=== PATIENT | female | born 1995 | race American Indian/Alaskan Native ===

== ENCOUNTER 2018-01-28 15:20 | Emergency (ER) | payer SELFPAY ==
[2018-01-28 16:21] LABS: HCG Qualitative,Urine Negative (Negative)
[2018-01-28 16:24] VITALS: BP 140/76
[2018-01-28 17:04] LABS: Bilirubin,Urine Negative (Negative); Blood,Urine Large (Negative); Color,Urine Yellow (Yellow)
[2018-01-28 17:05] LABS: Bacteria,Urine 2+ /HPF (Negative); Mucus,Urine 3+ /HPF; RBC,Urine > 182.0 /HPF (0.0-6.0); Urobilinogen,Urine < 2.0 mg/dL (<2.0); WBC,Urine > 182.0 /HPF (0.0-6.0)
--- NOTE | 2018-01-28 17:26 | Emergency Department Report ---
ED Abdominal Pain HPI - General Chief Complaint: Abdominal Pain Stated Complaint: LOWER ADB PAIN/FEVER Time Seen by Provider: 01/28/18 17:06 Source: patient Mode of arrival: Ambulatory Limitations: No Limitations - History of Present Illness Initial Comments: He is a 22-year-old black female presenting with suprapubic discomfort and dysuria for the past 2 days. Patient denies any vaginal discharge or abnormal vaginal bleeding. Patient does have some mild nausea and vomiting as well is able to keep most fluids down. Patient states the pain is a 6 out of 10 in severity. - Related Data Previous Rx's Medication Instructions Recorded Last Taken Type Ciprofloxacin HCl [Cipro] 500 mg PO BID #14 tablet 01/28/18 Unknown Rx HYDROcodone/APAP 5-325 [[place] 1 each PO Q4HR PRN #12 tablet 01/28/18 Unknown Rx 5/325] Metoclopramide HCl [Reglan TAB] 5 mg PO TID PRN #15 tablet 01/28/18 Unknown Rx Phenazopyridine [Pyridium] 100 mg PO TID 2 Days tab 01/28/18 Unknown Rx Allergies Allergy/AdvReac Type Severity Reaction Status Date / Time No Known Allergies Allergy Verified 01/28/18 15:30 ED Review of Systems ROS: Stated complaint: LOWER ADB PAIN/FEVER Other details as noted in HPI Comment: All other systems reviewed and negative ED Past Medical Hx - Past Medical History Previous Medical History?: No - Surgical History Past Surgical History?: No - Social History Smoking Status: Never Smoker Substance Use Type: None - Medications Home Medications: Home Medications Medication Instructions Recorded Confirmed Last Taken Type Ciprofloxacin HCl [Cipro] 500 mg PO BID #14 tablet 01/28/18 Unknown Rx HYDROcodone/APAP 5-325 [[place] 1 each PO Q4HR PRN #12 tablet 01/28/18 Unknown Rx 5/325] Metoclopramide HCl [Reglan TAB] 5 mg PO TID PRN #15 tablet 01/28/18 Unknown Rx Phenazopyridine [Pyridium] 100 mg PO TID 2 Days tab 01/28/18 Unknown Rx ED Physical Exam - General Limitations: No Limitations General appearance: alert, in no apparent distress - Head Head exam: Present: atraumatic, normocephalic - Eye Eye exam: Present: normal appearance - ENT ENT exam: Present: mucous membranes moist - Neck Neck exam: Present: normal inspection - Respiratory Respiratory exam: Present: normal lung sounds bilaterally. Absent: respiratory distress, wheezes, rales, rhonchi - Cardiovascular Cardiovascular Exam: Present: regular rate, normal rhythm. Absent: systolic murmur, diastolic murmur, rubs, gallop - GI/Abdominal GI/Abdominal exam: Present: soft, normal bowel sounds. Absent: distended, guarding, rebound - Extremities Exam Extremities exam: Present: normal inspection - Back Exam Back exam: Present: normal inspection - Neurological Exam Neurological exam: Present: alert, oriented X3 - Psychiatric Psychiatric exam: Present: normal affect, normal mood - Skin Skin exam: Present: warm, dry, intact, normal color. Absent: rash ED Course Vital Signs 01/28/18 15:30 Temperature 98.7 F Pulse Rate 93 H Respiratory 18 Rate Blood Pressure 140/76 O2 Sat by Pulse 100 Oximetry ED Medical Decision Making - Lab Data Lab Results 01/28/18 Range/Units 15:47 Urine Color Yellow (Yellow) Urine Turbidity Hazy (Clear) Urine pH 6.0 (5.0-7.0) Ur Specific [place] 1.018 (1.003-1.030) Urine Protein 100 mg/dl (Negative) mg/dL Urine Glucose (UA) Negative (Negative) mg/dL Urine Ketones Trace (Negative) mg/dL Urine Blood Large A (Negative) Urine Nitrite Positive (Negative) Ur Reducing Substances Not Reportable Urine Bilirubin Negative (Negative) Urine Ictotest Not Reportable Urine Urobilinogen < 2.0 (<2.0) mg/dL Ur Leukocyte Esterase Large (Negative) Urine WBC (Auto) > 182.0 H (0.0-6.0) /HPF Urine RBC (Auto) > 182.0 (0.0-6.0) /HPF Urine Bacteria (Auto) 2+ (Negative) /HPF Urine WBC Clumps 3+ /HPF Urine Mucus 3+ /HPF Urine HCG, Qual Negative (Negative) - Medical Decision Making Patient be treated for urinary tract infection will be discharged home. Critical care attestation.: If time is entered above; I have spent that time in minutes in the direct care of this critically ill patient, excluding procedure time. ED Disposition Clinical Impression: Acute cystitis Qualifiers: Hematuria presence: with hematuria Qualified Code(s): N30.01 - Acute cystitis with hematuria Disposition: DC-01 TO HOME OR SELFCARE Is pt being admited?: No Does the pt Need Aspirin: No Condition: Stable Instructions: Urinary Tract Infection in Women (ED) Referrals: [facility] [Outside] - 3-5 Days Time of Disposition: 17:25
== END 2018-01-28 17:59 | disposition home or self-care (01) ==
LOC: ED 15:20
DX: N30.01 Acute cystitis with hematuria (principal)
CPT/HCPCS: 81001; 81025; 99283

== ENCOUNTER 2020-04-18 00:54 | Emergency (ER) | payer OTHER ==
[2020-04-18 03:35] LABS: Basophils % (Auto) 0.6 % (0.0-1.8); Eosinophils # (Auto) 0.1 K/mm3 (0.0-0.4); Eosinophils % (Auto) 1.1 % (0.0-4.3); Hematocrit 43.5 % (30.3-42.9); Hemoglobin 15.1 gm/dl (10.1-14.3); Lymphocytes # (Auto) 1.6 K/mm3 (1.2-5.4); Lymphocytes % (Auto) 25.5 % (13.4-35.0); Mean Corpuscular HGB Conc 35 % (30-34); Mean Corpuscular Volume 87 fl (79-97); Monocytes # (Auto) 0.5 K/mm3 (0.0-0.8); Monocytes % (Auto) 7.7 % (0.0-7.3); Platelet Count 266 K/mm3 (140-440); Red Blood Count 5.01 M/mm3 (3.65-5.03); Red Cell Distribution Width 15.7 % (13.2-15.2)
[2020-04-18 03:57] LABS: Alanine Aminotransferase 45 units/L (7-56); Albumin 4.4 g/dL (3.9-5); Blood Urea Nitrogen 5 mg/dL (7-17); Calcium 9.4 mg/dL (8.4-10.2); Hemolysis Index 1
[2020-04-18 03:58] LABS: BUN/Creatinine Ratio 10
[2020-04-18 04:47] LABS: Bacteria,Urine 1+ /HPF (Negative); Bilirubin,Urine NEG (Negative); Blood,Urine NEG (Negative); Color,Urine Yellow (Yellow); Mucus,Urine 3+ /HPF; Protein,Urine <15 mg/dL mg/dL (Negative); Urobilinogen,Urine < 2.0 mg/dL (<2.0); WBC,Urine < 1.0 /HPF (0.0-6.0)
--- NOTE | 2020-04-18 07:37 | Emergency Department Report ---
ED General Adult HPI - General Chief complaint: Abdominal Pain Stated complaint: BACK PAIN Time Seen by Provider: 04/18/20 07:26 Source: patient Mode of arrival: Ambulatory Limitations: No Limitations - History of Present Illness Initial comments: Patient is a 25-year-old female presents emergency room with complaints of back pain that began 3 days ago. She states that she also has some mild abdominal discomfort and increased gas. She denies any fall or injury. She states she had a normal bowel movement yesterday. She denies any vomiting, diarrhea, fever, dysuria, urinary frequency, abnormal vaginal discharge, numbness, weakness, bowel or bladder incontinence, hematochezia, hematemesis, melena. No past medical history. No allergies to medications. Last menstrual cycle was in June secondary to an implanted control. She states that she sits in one position at a desk all day long. She states that she took some [id number] pain reliever and use a heating pad but continued to have pain. - Related Data Previous Rx's Medication Instructions Recorded Last Taken Type Ciprofloxacin HCl [Cipro] 500 mg PO BID #14 tablet 01/28/18 Unknown Rx HYDROcodone/APAP 5-325 [[place] 1 each PO Q4HR PRN #12 tablet 01/28/18 Unknown Rx 5/325] Metoclopramide HCl [Reglan TAB] 5 mg PO TID PRN #15 tablet 01/28/18 Unknown Rx Phenazopyridine [Pyridium] 100 mg PO TID 2 Days tab 01/28/18 Unknown Rx Nitrofurantoin Monohyd/M-Cryst 100 mg PO BID #20 capsule 05/30/18 Unknown Rx [Macrobid 100 mg Capsule] Phenazopyridine [Pyridium] 100 mg PO TID #9 tab 05/30/18 Unknown Rx Ibuprofen [Motrin 600 MG tab] 600 mg PO Q8H PRN #14 tablet 04/18/20 Unknown Rx Simethicone [Gas-X] 62.5 mg PO Q8HR PRN #1 strip 04/18/20 Unknown Rx methOCARBAMOL [Robaxin TAB] 500 mg PO BID PRN #14 tab 04/18/20 Unknown Rx Allergies Allergy/AdvReac Type Severity Reaction Status Date / Time No Known Allergies Allergy Verified 01/28/18 15:30 ED Review of Systems ROS: Stated complaint: BACK PAIN Other details as noted in HPI Comment: All other systems reviewed and negative ED Past Medical Hx - Past Medical History Previous Medical History?: Yes Additional medical history: UTI - Surgical History Past Surgical History?: No - Social History Smoking Status: Never Smoker Substance Use Type: Alcohol, Marijuana - Medications Home Medications: Home Medications Medication Instructions Recorded Confirmed Last Taken Type Ciprofloxacin HCl [Cipro] 500 mg PO BID #14 tablet 01/28/18 Unknown Rx HYDROcodone/APAP 5-325 [[place] 1 each PO Q4HR PRN #12 tablet 01/28/18 Unknown Rx 5/325] Metoclopramide HCl [Reglan TAB] 5 mg PO TID PRN #15 tablet 01/28/18 Unknown Rx Phenazopyridine [Pyridium] 100 mg PO TID 2 Days tab 01/28/18 Unknown Rx Nitrofurantoin Monohyd/M-Cryst 100 mg PO BID #20 capsule 05/30/18 Unknown Rx [Macrobid 100 mg Capsule] Phenazopyridine [Pyridium] 100 mg PO TID #9 tab 05/30/18 Unknown Rx Ibuprofen [Motrin 600 MG tab] 600 mg PO Q8H PRN #14 tablet 04/18/20 Unknown Rx Simethicone [Gas-X] 62.5 mg PO Q8HR PRN #1 strip 04/18/20 Unknown Rx methOCARBAMOL [Robaxin TAB] 500 mg PO BID PRN #14 tab 04/18/20 Unknown Rx ED Physical Exam - General Limitations: No Limitations General appearance: alert, in no apparent distress - Head Head exam: Present: atraumatic, normocephalic - Eye Eye exam: Present: normal appearance - ENT ENT exam: Present: mucous membranes moist - Neck Neck exam: Present: normal inspection, full ROM. Absent: tenderness, meningismus - Respiratory Respiratory exam: Present: normal lung sounds bilaterally. Absent: respiratory distress, wheezes, rales, rhonchi, stridor, chest wall tenderness, accessory muscle use, decreased breath sounds, prolonged expiratory - Cardiovascular Cardiovascular Exam: Present: regular rate, normal rhythm, normal heart sounds. Absent: systolic murmur, diastolic murmur, rubs, gallop - GI/Abdominal GI/Abdominal exam: Present: soft, normal bowel sounds. Absent: distended, tenderness, guarding, rebound, rigid - Back Exam Back exam: Present: normal inspection, full ROM, paraspinal tenderness (bilateral T-spine paraspinal muscular ttp, no midline C-spine, T-spine, or L- spine ttp, no step offs, no deformities). Absent: CVA tenderness (R), CVA t enderness (L), vertebral tenderness - Neurological Exam Neurological exam: Present: alert, oriented X3, CN II-XII intact, normal gait. Absent: motor sensory deficit - Psychiatric Psychiatric exam: Present: normal affect, normal mood - Skin Skin exam: Present: warm, dry, intact ED Course Vital Signs 04/18/20 04/18/20 04/18/20 02:21 02:29 07:59 Temperature 99.7 F H 99.7 F H 99.0 F Pulse Rate 90 84 Respiratory 18 16 Rate Blood Pressure 141/86 141/86 Blood Pressure 134/81 [Left] O2 Sat by Pulse 100 Oximetry ED Medical Decision Making - Lab Data Result diagrams: 04/18/20 03:06 04/18/20 03:06 Labs 04/18/20 04/18/20 04/18/20 03:06 03:06 03:06 WBC 6.3 RBC 5.01 Hgb 15.1 H Hct 43.5 H MCV 87 MCH 30 MCHC 35 H RDW 15.7 H Plt Count 266 Lymph % (Auto) 25.5 [place] % (Auto) 7.7 H Eos % (Auto) 1.1 Baso % (Auto) 0.6 Lymph # (Auto) 1.6 [place] # (Auto) 0.5 Eos # (Auto) 0.1 Baso # (Auto) 0.0 Seg Neutrophils % 65.1 Seg Neutrophils # 4.1 Sodium 140 Potassium 4.0 Chloride 103.3 Carbon Dioxide 26 Anion Gap 15 BUN 5 L Creatinine 0.5 L Estimated GFR > 60 BUN/Creatinine Ratio 10 Glucose 85 Calcium 9.4 Total Bilirubin 0.30 AST 34 ALT 45 Alkaline Phosphatase 115 Total Protein 7.9 Albumin 4.4 Albumin/Globulin Ratio 1.3 HCG, Qual Negative Urine Color Urine Turbidity Urine pH Ur Specific [place] Urine Protein Urine Glucose (UA) Urine Ketones Urine Blood Urine Nitrite Urine Bilirubin Urine Urobilinogen Ur Leukocyte Esterase Urine WBC (Auto) Urine RBC (Auto) U Epithel Cells (Auto) Urine Bacteria (Auto) Urine Mucus 04/18/20 03:55 WBC RBC Hgb Hct MCV MCH MCHC RDW Plt Count Lymph % (Auto) [place] % (Auto) Eos % (Auto) Baso % (Auto) Lymph # (Auto) [place] # (Auto) Eos # (Auto) Baso # (Auto) Seg Neutrophils % Seg Neutrophils # Sodium Potassium Chloride Carbon Dioxide Anion Gap BUN Creatinine Estimated GFR BUN/Creatinine Ratio Glucose Calcium Total Bilirubin AST ALT Alkaline Phosphatase Total Protein Albumin Albumin/Globulin Ratio HCG, Qual Urine Color Yellow Urine Turbidity Clear Urine pH 7.0 Ur Specific [place] 1.018 Urine Protein <15 mg/dl Urine Glucose (UA) Neg Urine Ketones Neg Urine Blood Neg Urine Nitrite Neg Urine Bilirubin Neg Urine Urobilinogen < 2.0 Ur Leukocyte Esterase Neg Urine WBC (Auto) < 1.0 Urine RBC (Auto) 2.0 U Epithel Cells (Auto) 15.0 H Urine Bacteria (Auto) 1+ Urine Mucus 3+ Vital Signs 04/18/20 04/18/20 04/18/20 02:21 02:29 07:59 Temperature 99.7 F H 99.7 F H 99.0 F Pulse Rate 90 84 Respiratory 18 16 Rate Blood Pressure 141/86 141/86 Blood Pressure 134/81 [Left] O2 Sat by Pulse 100 Oximetry - Medical Decision Making Patient is a 25-year-old female presents emergency room with complaints of back pain that began 3 days ago. She states that she also has some mild abdominal discomfort and increased gas. She denies any fall or injury. She states she had a normal bowel movement yesterday. She denies any vomiting, diarrhea, fe destin, dysuria, urinary frequency, abnormal vaginal discharge, numbness, weakness, bowel or bladder incontinence, hematochezia, hematemesis, melena. No past medical history. No allergies to medications. Last menstrual cycle was in June secondary to an implanted control. She states that she sits in one position at a desk all day long. She states that she took some [id number] pain reliever and use a heating pad but continued to have pain. VSS. on exam: bilateral T-spine paraspinal muscular ttp, no midline C-spine, T- spine, or L-spine ttp, no step offs, no deformities, no focal neuro deficits, no CVA tenderness bilaterally, no abdominal tenderness palpation, no guarding, no rebound, no rigidity, normal bowel sounds. Examination appears most consistent with mild muscle strain. She has no obstructive symptoms. Labs are normal. hCG is negative. UA is within normal limits. Patient given prescription for ibuprofen and Robaxin for muscle strain. Patient also given a prescription for Gas-X to help with gas and bloating. Discussed very strict return precautions with patient. Patient be referred to primary care physician for reexamination within the next 2 to 3 days. Advised patient Please take medication as prescribed. Do not drive or operate machinery while taking muscle relaxer Robaxin. May use ice pack, heating pad, rest, Epsom salt bath. Follow-up with a primary care doctor for reexamination. Return to emergency room for any new or worsening symptoms. - Differential Diagnosis Strain, sprain, DDD, bulging disc, radiculopathy, gas, indigestion, UTI Critical care attestation.: If time is entered above; I have spent that time in minutes in the direct care of this critically ill patient, excluding procedure time. ED Disposition Clinical Impression: Back pain Qualifiers: Back pain location: thoracic back pain Chronicity: acute Back pain laterality: bilateral Qualified Code(s): M54.6 - Pain in thoracic spine Abdominal pain Qualifiers: Abdominal location: unspecified location Qualified Code(s): R10.9 - Unspecified abdominal pain Disposition: DC- TO HOME OR SELFCARE Is pt being admited?: No Does the pt Need Aspirin: No Condition: Stable Instructions: Indigestion, [id number], Abdominal Bloating, Muscle Strain, Abdominal Pain (ED) Additional Instructions: Please take medication as prescribed. Do not drive or operate machinery while taking muscle relaxer Robaxin. May use ice pack, heating pad, rest, Epsom salt bath. Follow-up with a primary care doctor for reexamination. Return to emergency room for any new or worsening symptoms. Prescriptions: Simethicone [Gas-X] 62.5 mg PO Q8HR PRN #1 strip PRN Reason: gas Ibuprofen [Motrin 600 MG tab] 600 mg PO Q8H PRN #14 tablet PRN Reason: Pain methOCARBAMOL [Robaxin TAB] 500 mg PO BID PRN #14 tab PRN Reason: pain Referrals: MICHELL BRUCE MD [Staff Physician] - 2-3 Days [facility] [Provider Group] - 2-3 Days KWASI DEL ROSARIO MD [Staff Physician] - 2-3 Days Forms: Work/School Release Form(ED) Time of Disposition: 07:36 Print Language: WELSH
[2020-04-18 08:00] VITALS: BP 134/81
== END 2020-04-18 07:59 | disposition home or self-care (01) ==
LOC: ED 00:54
DX: M54.9 Dorsalgia, unspecified (principal); R10.9 Unspecified abdominal pain; F12.10 Cannabis abuse, uncomplicated; Z79.899 Other long term (current) drug therapy
CPT/HCPCS: 36415; 80053; 81001; 84703; 85025; 99283